=== PATIENT | male | born 1980 | race American Indian/Alaskan Native ===

== ENCOUNTER 2020-08-20 09:25 | Outpatient (CLI) | payer OTHER ==
--- NOTE | 2020-08-20 14:45 | XRay Report ---
Bilateral hips 3 views INDICATION: Bilateral hip pain IMPRESSION: Mild degenerative changes of both hips. No fracture or subluxation. Signer Name: Wallace Pichardo MD Signed: 08/20/2020 2:41 PM Workstation Name: [email or web address]
--- NOTE | 2020-08-20 14:46 | XRay Report ---
Lumbar spine 3 views INDICATION: Low back pain IMPRESSION: Mild multilevel discogenic and facet arthropathy particularly at L5-S1 where there is mod erate to severe bilateral neural foraminal stenosis at this level. Signer Name: Wallace Pichardo MD Signed: 08/20/2020 2:41 PM Workstation Name: [email or web address]
== END 2020-08-20 09:26 | disposition home or self-care (01) ==
LOC: XRAY 09:25
PROVIDERS: ATTEND Internal Medicine
DX: M16.0 Bilateral primary osteoarthritis of hip (principal); M47.817 Spondylosis without myelopathy or radiculopathy, lumbosacral region; M51.36 Other intervertebral disc degeneration, lumbar region
CPT/HCPCS: 72100; 73521